=== PATIENT | female | born 1970 | race Native Hawaiian/Other Pacific Islander ===

== ENCOUNTER 2020-11-05 13:28 | Emergency (ER) | payer OTHER ==
[~2020-11-05] VITALS: Ht 144.8 cm; Wt 47.6 kg
[2020-11-05 14:12] LABS: PLATELET COUNT 135 K/uL (152-353)
[2020-11-05 16:48] VITALS: BP 87/49; TEMP 97.8
== END 2020-11-05 16:48 | disposition home or self-care (01) ==
LOC: ED 13:28
PROVIDERS: Family Medicine
DX: J20.9 Acute bronchitis, unspecified (principal); U07.1 COVID-19; M79.7 Fibromyalgia
CPT/HCPCS: 80053; 85027; 87040; 96372; 99283; J1020